=== PATIENT | female | born 1975 | race Caucasian/White ===

== ENCOUNTER 2018-08-11 14:01 | Emergency (ER) | payer SELFPAY ==
[2018-08-11 14:15] VITALS: BP 157/93
--- NOTE | 2018-08-11 14:29 | EDPHY ---
H & P Stated Complaint: ST last Monday,cough and congestion and left ear plugged Time Seen by Provider: 08/11/18 14:13 HPI/ROS: CHIEF COMPLAINT: Sore throat HISTORY OF PRESENT ILLNESS: This is a healthy 42-year-old female who presents with 6 days of sore throat. At the beginning of this illness she had subjective fever and chills, fatigue, cough, and sore throat. She has had some leg cramps. She continues with sore throat and is now noticing a postnasal drip. She has tried hot steam showers and Mucinex without relief. She uses a Neti pot. She has had sinus infections in the past. No influenza vaccination this year. She denies headache, earache, neck pain or stiffness, current fever , vomiting, diarrhea, or urinary symptoms. REVIEW OF SYSTEMS: A ten system review of systems was performed and is negative with the exception of the items mentioned in the HPI. Past medical history: Occasional sinus infection Social history: She has lived in [place] for 6 months. She works at [employer]. She lives with her boyfriend. General Appearance: Alert. Vital signs reviewed. Initial blood pressure 157/ 93. Eyes: Pupils equal and round, no conjunctival injection, no discharge. Anicteric. ENT, Mouth: Mucous membranes are moist,mild oropharyngeal erythema without edema or exudates. Mild left maxillary sinus tenderness Neck: No lymphadenopathy, supple. No meningismus. Respiratory: Lungs are clear to auscultation; no wheezes, rales, or rhonchi. Cardiovascular: Regular rate and rhythm; no murmur, rub, or gallop. Gastrointestinal: Abdomen is soft and nontender, no masses or organomegaly, bowel sounds normal. Skin: Warm and dry, no rashes on exposed skin, normal color. Back: Nontender to palpation over the thoracolumbar spine. No CVAT. Extremities: No lower extremity edema, no calf tenderness or swelling. Neurological: Alert and oriented. Moving all four extremities easily and equally. Psychiatric: Normal affect. - Personal History LMP (Females 10-55): 8-14 Days Ago Current Tetanus Diphtheria and Acellular Pertussis (TDAP): Unsure - Medical/Surgical History Hx Asthma: No Hx Chronic Respiratory Disease: No Hx Diabetes: No Hx Cardiac Disease: No Hx Renal Disease: No Hx Cirrhosis: No Hx Alcoholism: No Hx HIV/AIDS: No Hx Splenectomy or Spleen Trauma: No Other PMH: Med hx-none. Surg-[place] - Social History Smoking Status: Never smoked Constitutional: Initial Vital Signs Temperature (C) 36.9 C 08/11/18 14:10 Heart Rate 66 08/11/18 14:10 Respiratory Rate 16 08/11/18 14:10 Blood Pressure 157/93 H 08/11/18 14:10 O2 Sat (%) 99 08/11/18 14:10 O2 Delivery Mode Room Air Allergies/Adverse Reactions: No Known Allergies Allergy (Verified 08/11/18 14:09) Home Medications: Medication Instructions Recorded Bcp 08/11/18 Doxycycline Hyclate [Doxycycline] 100 mg PO BID #14 cap 08/11/18 Fluticasone Nasal [Flonase Nasal 1 sprays NASAL DAILY #1 mdi 08/11/18 [place] (RX)] Medical Decision Making ED Course/Re-evaluation: Signs and symptoms of influenza. I suspect that she is suffering from influenza and now has an overlying sinus infection. She has had these in the past. She does not appear dehydrated or systemically ill. Influenza testing will not be helpful at this point and I would not recommend antivirals. She will continue with symptomatic measures she has used in the past, such as Neti pot. I am prescribing a 7 day course of doxycycline for treatment of possible bacterial sinusitis. She is being referred to a primary care provider. Differential Diagnosis: I considered a differential diagnosis including but not limited to sinusitis, bronchitis, pharyngitis (a viral or bacterial), pneumonia, urinary tract infection, viral syndrome, and influenza. Departure - Departure Disposition: Home, Routine, Self-Care Clinical Impression: Viral syndrome Sinusitis Qualifiers: Sinusitis location: maxillary Chronicity: acute Recurrence: not specified as recurrent Qualified Code(s): J01.00 - Acute maxillary sinusitis, unspecified Condition: Good Instructions: Sinusitis (ED), Influenza (ED) Additional Instructions: As we discussed, I think her symptoms are consistent with the flu (influenza). At this point is in time there is no benefit to testing or treating you with an antiviral medication. I recommend rest, fluids, and [id number] treatments for congestion and cough. I also think that you have a sinus infection and am choosing to treat that with antibiotics. Continue with the Mucinex. Referrals: Chyna Norman MD [Medical Doctor] - As per Instructions Stand Alone Forms: Work Excuse Prescriptions: Doxycycline Hyclate [Doxycycline] 100 mg PO BID #14 cap Fluticasone Nasal [Flonase Nasal [place] (RX)] 1 sprays NASAL DAILY #1 mdi
== END 2018-08-11 14:42 | disposition home or self-care (01) ==
LOC: CED 14:01
DX: B34.9 Viral infection, unspecified (principal); J01.00 Acute maxillary sinusitis, unspecified
CPT/HCPCS: 99283-ER